=== PATIENT | male | born 1995 | race Caucasian/White ===

== ENCOUNTER 2020-03-21 00:51 | Emergency (ER) | payer MEDICAID, SELFPAY ==
[2020-03-21 00:54] VITALS: BP 121/70; PULSE 63; RESP 16; TEMP 36.9; O2SAT 98; BMI 24.6
[2020-03-21] MEDS: Fluorescein Sodium STRIP 1 STRIP EYE-LEFT (04:05)
--- NOTE | 2020-03-21 04:51 | ED_ITS ---
HPI - Eye Problem General Chief complaint: Eye Problems Stated complaint: Eye Pain Time Seen by Provider: 03/21/20 03:43 Source: patient Mode of arrival: ambulatory History of Present Illness HPI Narrative: This is a 24-year-old male who states that at work he was working with some metal without safety glasses and states that he felt something go into his eye and states it still feels like it is there despite irrigating it at home. He denies any double vision, blurry vision, loss in acuity. Related Data Previous Rx's Medication Instructions Recorded erythromycin 0.5 inch OPHTHALMIC (EYE) QID 7 03/21/20 Days #1 g Allergies Allergy/AdvReac Type Severity Reaction Status Date / Time No Known Allergies Allergy Verified 03/21/20 03:43 Review of Systems Review of Systems: Pertinent positives and negatives as stated in HPI 10 point review of systems otherwise negative. [facility] Past Medical History Source: nursing notes reviewed Social History Social History Advance Directives: No Physical Exam Vital Signs: Vital Signs: Last Vital Signs Temp 98.4 F 03/21/20 00:54 Pulse 63 03/21/20 00:54 Resp 16 03/21/20 00:54 BP 121/70 03/21/20 00:54 Pulse Ox 98 03/21/20 00:54 Body Mass Index 24.6 VITAL SIGNS: Reviewed. GENERAL: Well developed, well nourished, in no acute distress. HEAD: Normocephalic/atraumatic, EYES: PERRLA, EOMI intact without pain, no nystagmus/pallor/icterus noted -------OS: On gross exam no foreign body identified, no conjunctival injection, on fluorescein exam no noted corneal abrasion or foreign body identified OROPHARYNX: no oral lesions noted, posterior pharynx clear NECK: Supple, no adenopathy LUNGS: Normal breath sounds. No adventitious sounds or accessory muscle use. SpO2<98> CARDIOVASCULAR: Regular rate and rhythm without noted murmurs ABDOMEN: Soft, non-tender, non-distended with bowel sounds. NEUROLOGIC: Alert and oriented x 4. Course Course Course Narrative: This is a 24-year-old male with history of clinical presentation suspicious for foreign body in left eye, however on fluorescein exam there were no identifiable corneal abrasions or foreign bodies noted. The patient was provided a prescription for erythromycin ointment and given a referral to Ophthalmology and instructed to call the office on Sunday morning. Discharge Plan Discharge Clinical Impression: Corneal abrasion Qualifiers: Encounter type: initial encounter Laterality: left Qualified Code(s): S05.02XA - Injury of conjunctiva and corneal abrasion without foreign body, left eye, initial encounter Foreign body in eyeball, left Qualifiers: Encounter type: initial encounter Qualified Code(s): S05.52XA - Penetrating wound with foreign body of left eyeball, initial encounter Patient Disposition: Home, Self-Care Instructions: Eye Foreign Body (ED) Additional Instructions: Please return to emergency department should you experience any acute worsening of your symptoms. Prescriptions: New erythromycin 5 mg/gram (0.5 %) ointment 0.5 inch ophthalmic (eye) QID 7 Days Qty: 1 RF: 0 Referrals: Hilton Garcia [Physician] - 2 days (Please evaluate a 24-year-old male with subjective object in eye on fluorescein exam unable to identify and no evidence of corneal abrasion, however started on erythromycin ointment and directed to follow up in your office.) Interventions: ED Discharge Assessment Last Done: 03/21/20 05:06 Discharge Date/Time: 03/21/20 05:11 Print Language: Ukrainian
== END 2020-03-21 05:11 | disposition home or self-care (01) ==
PROVIDERS: Emergency Provider Student in an Organized Health Care Education/Training Program
DX: S05.02XA Injury of conjunctiva and corneal abrasion without foreign body, left eye, initial encounter (principal); S05.52XA Penetrating wound with foreign body of left eyeball, initial encounter; H57.12 Ocular pain, left eye; Y28.9XXA Contact with unspecified sharp object, undetermined intent, initial encounter; Y93.9 Activity, unspecified; Y92.9 Unspecified place or not applicable; Y99.9 Unspecified external cause status; Z79.899 Other long term (current) drug therapy
CPT/HCPCS: 99283

== ENCOUNTER 2022-06-17 08:49 | Emergency (ER) | payer MEDICAID, OTHER, SELFPAY ==
[2022-06-17 08:52] VITALS: BP 134/71; PULSE 82; RESP 16; TEMP 36.6; O2SAT 99; BMI 26.8
--- NOTE | 2022-06-17 09:16 | ED.EYEPROB ---
HPI - Eye Problem General Chief complaint: Eye Problems Stated complaint: fb l eye Time Seen by Provider: 06/17/22 09:13 Source: patient Mode of arrival: ambulatory Limitations: no limitations History of Present Illness HPI Narrative: 27 year old male presents w/ FB sensation in L eye patient is a welder fitter apprentice and tells me he may have metal in his L eye X2 days. He wears safety googles. Not a contact lens wearer. He reports every time he moves his eye he feels like his eyelid is being scratched as well. Patient denies fevers, chills, headache, vision changes, dizziness or weakness. Related Data Previous Rx's Medication Instructions Recorded erythromycin 5 mg/gram (0.5 %) eye 1 appl ophthalmic (eye) QID 7 days 06/17/22 ointment #3.5 grams Allergies Allergy/AdvReac Type Severity Reaction Status Date / Time No Known Allergies Allergy Verified 03/21/20 03:43 Review of Systems Review of Systems: Constitutional : No Weight loss, No Fever, No Chills, No Fatigue, No Malaise ENT/Mouth : No sore throat, No Rhinorrhea Eyes: + Eye Pain, + Swelling, + Redness Cardiovascular : No Chest Pain, No SOB, No Dyspnea on Exertion, No Orthopnea, No Edema, No Palpitations Respiratory : No Cough, No Sputum, No Wheezing Gastrointestinal : No Nausea, No Vomiting, No Diarrhea, No Constipation, No abdominal Pain, No Hematochezia, No Melena Genitourinary : No Dysuria, No Urinary Frequency, No Hematuria, Musculoskeletal : No joint pain, No Myalgias, No Joint Swelling Skin : No Skin Lesions, No rash Neuro : No Weakness, No Numbness, No Dizziness, No Headache Psych : No Anxiety/Panic, No Depression All other systems reviewed and are negative Yes all other systems are reviewed and are negative [facility] Past Medical History Attestation statement: The following information was validated with the patient. Source: old records reviewed and nursing notes reviewed Social History Social History Alcohol intake: former Smoked in Last 30 Days: No Use of substances other than those prescribed or required for medical reasons: No Advance Directives: No Advance Directives Information Provided: No Physical Exam Vital Signs: Vital Signs: Last Vital Signs Temp 98 F 06/17/22 08:52 Pulse 82 06/17/22 08:52 Resp 16 06/17/22 08:52 BP 134/71 06/17/22 08:52 Pulse Ox 99 06/17/22 08:52 O2 Del Method Room Air 06/17/22 08:52 BMI result Body Mass Index 26.8 vss Appearance: Alert.? Oriented X3.? No acute distress.? Head: Normocephalic, atraumatic, no step-offs or deformities Eyes: Pupils equal, round and reactive to light.? There appears to be a small foreign body just inferior to the pupil at the 6 oclock position possibly metal. Left eye with conjunctival a injected. Extraocular movements intact and pain-free. Fluorescein stain: There is metal noted inferior to the left pupil at the 6 o'clock position, no rust ring. Negative Claire sign. No corneal ulcer. Just below the piece of metal there does appear to be a small 0.5 cm corneal abrasion, linear. Normal right eye. No signs of globe rupture. Neck: Normal inspection.? Neck supple.? CVS: Normal heart rate and rhythm.? Pulses normal.? Respiratory: No respiratory distress.? Breath sounds normal.? Abdomen: Soft and nontender.? Skin: Skin warm and dry.? Normal skin color.? Normal skin turgor.? Extremities: No lower extremity edema.? No calf ttp. 5/5 strength to bilateral upper and lower extremities Neuro: Oriented X 3.? No motor deficit.? No sensory deficit. CN 2-12 intact Course Reevaluation(s) Reevaluation #1: Normal visual acuity. Tried to remove foreign body using a cotton swab, unsuccessful. A small 25 gauge needle was used, a small amount of metal was taken out however there is a large amount of metal imbedded into patient's cornea. I did consult my attending Dr. Chavez who evaluated patient and also agrees that the remainder of the metal is far too deep to be able to get out. Patient tells me this has happened to him before and he has gone to the ?I emergency room ?in [place]. He tells me he will go to [facility] at this time his will drive him. Erythromycin ointment sent to his pharmacy first dose given here. Time: 10:04 Medications Administered Discontinued Medications Generic Name Dose Route Start Last Admin Trade Name Freq PRN Reason Stop Dose Admin Fluorescein Sodium 1 strip 06/17/22 09:14 06/17/22 09:56 Fluorescein Sodium Strip EYE-BOTH 06/17/22 09:15 1 strip ONCE ONE Administration Tetracaine HCl 3 drop 06/17/22 09:14 06/17/22 09:57 Tetracaine Hcl/Pf 0.5% Oph Mandy 4 Ml Drops EYE-BOTH 06/17/22 09:15 3 drop ONCE ONE Administration Tetracaine HCl 1 drop 06/17/22 09:52 06/17/22 09:57 Tetracaine Hcl/Pf 0.5% Oph Mandy 4 Ml Drops EYE-BOTH 06/17/22 09:53 1 drop ONCE ONE Administration Medical Decision Making Medical Decision Making [facility] Narrative: 0921 27-year-old male presents with foreign body sensation in his left eye for a few days worsening. Unsure what is in there Physical exam significant for Pupils equal, round and reactive to light.? There appears to be a small foreign body just inferior to the pupil at the 6 oclock position possibly metal. Left eye with conjunctival a injected. Extraocular movements intact and pain-free. There is metal noted inferior to the left pupil at the 6 o'clock position, no rust ring. Negative Claire sign. No corneal ulcer. Just below the piece of metal there does appear to be a small 0.5 cm corneal abrasion, linear. Normal right eye. No signs of globe rupture. Concerns for metal foreign body in eye. No visualized rest ring. Negative Claire sign unlikely globe rupture. No signs of corneal ulcer. Plan at this time fluorescein stain, tetracaine, visual acuity Differential Diagnosis Differential Diagnoses: The differential diagnosis associated with the presentation includes Concerns for metal foreign body in eye. No visualized rest ring. Negative Claire sign unlikely globe rupture. No signs of corneal ulcer. Admission/Observation Consideration of admission/observation: Escalation of care including admission/observation considered [facility] Core Measures AMI core measures followed: Yes Measure exclusions: not indicated Critical Care Time Critical Care Time Critical Care Time: No Discharge Plan Discharge Clinical Impression: Corneal abrasion Patient Disposition: Home, Self-Care Instructions: Corneal Abrasion (ED) Additional Instructions: Take your medications as prescribed. If you were prescribed antibiotics today, it is important that you take your medication to their entirety, do not skip any doses, do not finish them early. Follow-up with your primary care provider this week. Return to the emergency department with new or worsening symptoms. Such as fevers, chills, chest pain, shortness of breath, nausea, vomiting, dizziness, headache, vision changes, lethargy In case of emergency call 911 Prescriptions: New erythromycin 5 mg/gram (0.5 %) ointment 1 appl ophthalmic (eye) QID 7 Days Qty: 3.5 0RF Discontinued erythromycin 5 mg/gram (0.5 %) ointment 0.5 inch ophthalmic (eye) QID 7 Days Qty: 1 0RF Referrals: Hilton Garcia [Physician] - 2 days Physician,None [Primary Care Provider] - 2 days Stand Alone Forms: Work/School Release
[2022-06-17] MEDS: Fluorescein Sodium STRIP 1 STRIP EYE-BOTH (09:56)
[2022-06-17] MEDS: Tetracaine HCl/PF 0.5% Oph Sol 4 ML DROPS 1 DROP EYE-BOTH (09:57)
[2022-06-17] MEDS: Tetracaine HCl/PF 0.5% Oph Sol 4 ML DROPS 3 DROP EYE-BOTH (09:57)
== END 2022-06-17 10:14 | disposition home or self-care (01) ==
PROVIDERS: Emergency Provider Emergency Medicine
DX: T15.02XA Foreign body in cornea, left eye, initial encounter (principal); X58.XXXA Exposure to other specified factors, initial encounter; Y93.89 Activity, other specified; Y92.9 Unspecified place or not applicable; Y99.0 Civilian activity done for income or pay
CPT/HCPCS: 65220; 99284